=== PATIENT | male | born 1945 | race Caucasian/White ===

== ENCOUNTER 2016-05-27 09:02 | Emergency (ER) | payer MEDICARE, BC ==
[2016-05-27 09:52] LABS: Hematocrit 42.6 % (42.0-52.0); Hemoglobin 13.9 gm/dL (13.5-18.0); Mean Cell Volume 81.6 fl (78-100); Mean Corpuscular Hemoglobin 26.6 pg (27-31); Mean Corpuscular Hgb Conc 32.6 g/dl (32-36); Mean Platelet Volume 9.4 fl (6.0-9.5); Neutrophil # 4.5 K/mm3 (1.3-6.0); Neutrophil % 71.7 % (42-75.0); Platelet Count 178 K/mm3 (150-450); Red Blood Count 5.22 M/mm3 (4.7-6.0); Red Cell Distribution Width 14.8 % (11.5-14.0); White Blood Count 6.3 K/mm3 (4.0-10.5)
[2016-05-27 10:05] LABS: Albumin * 3.2 gm/dl (3.4-5.0); Anion Gap 13.5 mmol/L (6.8-13.8); BUN/Creatinine Ratio 22.2 (9.0-21.6); Bilirubin, Total 0.3 mg/dL (0.0-1.1); Ca. Corrected For Albumin 8.9 mg/dL (8.4-10.2); Calcium * 8.6 mg/dL (7.9-10.9); Carbon Dioxide 23.6 mmol/L (24-32.6); Potassium 4.1 mmol/L (3.4-4.6); Total Protein 6.4 gm/dL (6.2-8.2)
--- NOTE | 2016-05-27 11:07 | ERNOTE ---
Abdominal HPI - General Chief Complaint: Genitourinary Problem Time Seen by Provider: 05/27/16 10:45 Source: patient, family Exam Limitations: no limitations - Immun/Allergies/Home Medications Immunizatons: IMMUNIZATION HX Immunizations Up to Date Yes History of Influenza Vaccine Yes Hx Pneumococcal Vaccination Yes Allergies/Adverse Reactions: Allergies Penicillins Allergy (Mild, Verified 05/27/16 09:11) Hives Sulfa (Sulfonamide Antibiotics) [Sulfa(Sulfonamide Antibiotics)] Allergy (Mild, Verified 05/27/16 09:11) Hives Home Medications: HOME MEDICATIONS Ascorbic Acid [Vitamin C] 500 mg PO DAILY 01/21/13 [Last Taken Unknown] Multivits-Minerals/FA/Lycopene [One Daily For Men Tablet] 1 each PO DAILY [Last Taken Unknown] Oxybutynin Chloride [Oxybutynin (Ditropan)] 5 mg PO BID 01/21/13 [Last Taken Unknown] Simvastatin [Zocor] 20 mg PO HS 01/21/13 [Last Taken Unknown] Testosterone Cypionate [Depo-Testosterone] 200 mg IM Q30D 01/21/13 [Last Taken Unknown] Tamsulosin HCl [Flomax] 0.4 mg PO DAILY 11/16/14 [Last Taken Unknown] Beclomethasone Dipropionate [Qvar] 1 puff IH BID 02/07/15 [Last Taken Unknown] Docusate Sodium [Colace] 100 mg PO DAILY 02/07/15 [Last Taken Unknown] Loratadine [Claritin] 10 mg PO DAILY 02/07/15 [Last Taken Unknown] Pantoprazole Sodium [Protonix] 40 mg PO BID 02/07/15 [Last Taken Unknown] Albuterol Sulfate [Proventil Hfa] 2 puff IH Q4H PRN 07/09/15 [Last Taken Unknown ] ALPRAZolam [Xanax] 0.5 mg PO BID PRN 10/23/15 [Last Taken Unknown] Aspirin [Aspirin Enteric Coated] 325 mg PO DAILY 10/23/15 [Last Taken 10/25/15] Metoprolol Tartrate [Lopressor] 25 mg PO BID 10/23/15 [Last Taken 10/26/15 06:30 ] Archer-3 Fatty Acids/Fish Oil [Fish Oil 1,000 mg Capsule] 1 each PO DAILY [Last Taken Unknown] HYDROcodone/ACETAMINOPHEN [Nocona 5-325] 1 each PO Q4H PRN #60 tablet 10/26/15 [ Last Taken Unknown] Oxycodone HCl/Acetaminophen [Percocet 5-325 mg Tablet] 1 each PO Q4H PRN #60 tablet 10/26/15 [Last Taken Unknown] - History of Present Illness Narrative: Patient started with mild lower abdominal pain three days ago. The pain got more severe at 06:30 this morning and he is wondering whether he has another kidney stone. The pain is on both sides, comes in waves 2/10 now, up to 10/10 max. It feels better to rub his abdomen. One episode of nausea, no vomiting, no diarrhea. He had not urinated since yesterday am, bladder scan only showed 250ml and he was able to urinate just prior to exam. His abdomen feels more bloated than usual Timing: intermittent Quality: moderate Modifying Factors - (Improves): Present: other - rubbing it Modifying Factors - (Worsens): Absent: breathing, coughing Associated Symptoms: Present: nausea. Absent: headache, back pain, chest pain, neck pain, fever/chills, heartburn, vomiting Review of Systems - Review of Systems Constitutional: Absent: recent illness, fever Respiratory: Absent: shortness of breath, cough Cardiology: Absent: chest pain Gastrointestinal/Abdominal: Present: See HPI, nausea Genitourinary: Present: See HPI. Absent: frequency, pain, dysuria Neurological: Absent: headache, weakness, numbness - Patient's Past Medical History Patient History - Medical: Kidney stone, Migraines, Obesity Patient History - Cardiac/Respiratory: Atrial Fibrillation - intermittent, COPD Patient History - Cancer: No Hx of Cancer Patient History - Surgical Procedures: Appendectomy - as a child, Colonoscopy, T & A, Other - Family History Father Family History - Medical: , No pertinent hx Family History - Cardiac/Respiratory: Other Mother Family History - Medical: , Alzheimer's Disease Family History - Cardiac/Respiratory: CVA/Stroke - Social History Living Situations: spouse Does anyone smoke in the home?: No Smoking Status: Former smoker - quit 40+ years ago Alcohol Use: occasionally Drug Use: none Physical Exam - Physical Exam General Appearance: Present: wd/wn, alert, no apparent distress Respiratory: Present: no respiratory distress, normal breath sounds, no accessory muscle use, lungs clear Cardiovascular/Chest: Present: regular rate, rhythm, no murmur Gastrointestinal/Abdominal: Present: normal bowel sounds, nondistended, soft, tenderness - mild periumbilical. Absent: guarding, rebound Neurological Exam: Present: alert, oriented, normal mood/affect Skin Exam: Present: normal color, warm/dry ED Progress - Results and Orders Patient's Lab Results:: I have reviewed the patient's lab results. - Vital Signs Patient's Vital Signs:: I have reviewed the patient's vital signs. Vital Signs: Vital Signs 05/27/16 09:06 Temperature 36.0 C L Pulse Rate 63 Respiratory 20 Rate Blood Pressure 159/77 O2 Sat by Pulse 99 Oximetry - X-Ray X-Ray #1 X-Ray: abdomen - stool, no other acute findings Interpretation: Reviewed by me - Progress/Reassessment Chief Complaint: Genitourinary Problem Progress Note-Subjective: 05/27/16 13:00 feeling much better, discussed results and treatment of constipation Departure - Departure Clinical Impression: Abdominal pain Qualifiers: Abdominal location: lower abdomen, unspecified Qualified Code(s): R10.30 - Lower abdominal pain, unspecified Constipation Qualifiers: Constipation type: unspecified constipation type Qualified Code(s): K59.00 - Constipation, unspecified Disposition: Home self-care Condition: Good Instructions: Constipation, Adult, [id number] Additional Instructions: try a laxative like dulcolax and magnesium citrate to relieve the constipation if the pain does not resolve with that or you have additional symptoms follow up with your doctor or return to the ER Referrals: William Dennis MD [Primary Care Provider] -
[2016-05-27] MEDS ORDERED: ONDANSETRON HCL/PF 2 MG/ML VIAL IV ONE (11:12)
[2016-05-27] MEDS ORDERED: KETOROLAC TROMETHAMINE 30 MG/ML VIAL IV ONE (11:12)
[2016-05-27 11:19] LABS: Urine Appearance Clear; Urine Bilirubin Negative (NEGATIVE); Urine Blood Negative /ul (NEGATIVE); Urine Color Yellow; Urine Ketone Negative (NEGATIVE); Urine Nitrite Negative (NEGATIVE); Urine Protein Negative (NEGATIVE); Urine Urobilinogen Normal (NORMAL)
[2016-05-27 11:20] LABS: Urine Bacteria None Seen; Urine RBC None Seen /hpf (0-5); Urine WBC None Seen /hpf (0-5)
[2016-05-27] MEDS ORDERED: ONDANSETRON HCL/PF 2 MG/ML VIAL ONE (11:20)
[2016-05-27] MEDS ORDERED: KETOROLAC TROMETHAMINE 30 MG/ML VIAL ONE (11:20)
[2016-05-27 13:10] VITALS: BP 140/77
== END 2016-05-27 13:09 | disposition home or self-care (01) ==
LOC: ER 09:02
PROC: BT40ZZZ Ultrasonography of Bladder (ICD-10-PCS; principal; 2016-05-27)
DX: K59.00 Constipation, unspecified (principal); R10.30 Lower abdominal pain, unspecified; Z87.442 Personal history of urinary calculi; Z87.891 Personal history of nicotine dependence

== ENCOUNTER 2016-07-25 08:33 | Observation (INO) | payer MEDICARE, BC ==
[2016-07-25] MEDS ORDERED: NITROGLYCERIN 0.4 MG/TAB BTL SL ONE (08:47)
[2016-07-25] MEDS ORDERED: NITROGLYCERIN 0.4 MG/TAB BTL SL PRN (08:48)
[2016-07-25] MEDS ORDERED: ONDANSETRON HCL/PF 2 MG/ML VIAL ONE ×2 (08:49→10:06)
[2016-07-25] MEDS ORDERED: ONDANSETRON HCL/PF 2 MG/ML VIAL IV ONE ×2 (08:49→09:57)
--- OUTSIDE RECORDS SUMMARY | 2016-07-25 08:53 | XMS REPORT | Continuity of Care Document ---
:1945 Author Organization [facility] ([facility]) Address [address] [place] [address] Phone [phone] Care Team Providers Name Role Phone William Dennis Primary Care Provider [phone] Source Comments This disclosure is being made pursuant to the Care Everywhere program, applicable federal and state laws, and may not contain all informaitonavailable regarding this patient.[facility] ([facility]) Active Allergies and Adverse Reactions Allergen Noted Date Severity Reactions Comments Penicillins Urticaria (Hives) Sulfadoxine Urticaria (Hives) Current Medications Prescription Sig. Disp. Refills Start End Date Status Date LORATADINE PO Take 10 mg by mouth Active daily . MULTIVITAMINS Take by mouth daily Active (MULTIVITAMIN PO) . ASPIRIN/ACETAMINO Take 2 tablets by Active PHEN/CAFFEINE mouth as needed . (EXCEDRIN MIGRAINE PO) PANTOPRAZOLE 40 Take 40 mg by mouth Active mg EC tablet daily . 4 docusate 100 mg Take 100 mg by Active capsule mouth daily . ALPRAZolam 0.5 mg Take 1 Tab (0.5 mg 60 Tab 5 Active tablet total) by mouth 2 5 times daily as needed QVAR 80 Use by inhalation 2 3 Active mcg/Actuation times daily . 5 inhaler SIMVASTATIN 20 mg Take 20 mg by mouth 3 Active tablet every evening . 5 omega-3 fatty Take 1 g by mouth Active acids 1 gram daily. capsule ALBUTEROL SULFATE Use by inhalation Active (PROVENTIL INH) as needed. aspirin 325 mg Take 325 mg by Active tablet mouth daily. tamsulosin 0.4 mg Take 1 capsule (0.4 30 capsule 11 Active capsule mg total) by mouth 6 daily. testosterone Inject 1 mL (200 mg 1 mL 5 Active cypionate 200 total) 6 mg/mL injection intramuscularly every 4 weeks. metoPROLol Take 1 tablet (25 90 tablet 3 Active tartrate 25 mg mg total) by mouth 6 tablet 2 times daily. oxybutynin 5 mg Take 1 tablet (5 mg 180 tablet 4 Active tablet total) by mouth 2 6 times daily. ascorbic acid Take 1,000 mg by Active (vitamin C) mouth daily. (VITAMIN C) 1,000 mg tablet acetaminophen 500 Take 500 mg by Active mg tablet mouth every 6 hours as needed. albuterol 2.5 Use 3 mL by Active mg/3 mL inhalation every 4 inhalation hours as needed. solution tiotropium Use 1 capsule by 30 capsule 11 Active (SPIRIVA) 18 mcg inhalation daily. 7 inhalation capsule levofloxacin 750 0 07/12/19 Discontinued mg tablet 6 17 Active Problems Problem Noted Date COPD (chronic obstructive pulmonary disease) 07/12/2016 Gastroesophageal reflux disease with esophagitis 07/12/2016 COPD, frequent exacerbations 07/12/2016 Nephrolithiasis 05/26/2014 Action tremor 05/11/2014 Male hypogonadism 09/16/2011 Atrial fibrillation Hyperlipidemia Sleep apnea Obesity Most Recent Encounters Date Type Specialty Providers Description 07/12/2016 Telephone [facility] Radha Lino, Chief Comp: Medication QUANTITATIVE ASSOCIATE Problem 07/11/2016 Office Visit Med Pulmonary Default, Other Dx: Gastroesophageal Billg - Defo reflux disease, Comellas, esophagitis presence Marlo Richmond MD not specified (Primary Clinic, Dx) Obstructive Pulmonary Disease 07/11/2016 Hospital Respiratory Therapy Default, Other Dx: Other emphysema Encounter Mark Lantigua MD 07/02/2016 Orders/Notes Med Pulmonary Radha Lino, Dx: Other emphysema QUANTITATIVE ASSOCIATE (Primary Dx) 05/27/2016 Telephone Urology Jose Juan Cardona MD Chief Comp: Patient Concern 05/10/2016 Refill Cardiac Erica Munroe MD Dx: Paroxysmal atrial Rehabilitation fibrillation (Primary Dx) 05/10/2016 Refill Cardiac Erica Munroe MD Dx: Paroxysmal atrial Rehabilitation fibrillation (Primary Dx) Social History Tobacco Use Types Packs/Day Years Used Date Former Smoker Cigarettes 0.5 20 Quit: 05/05/1976 Smokeless Tobacco: Never Used Tobacco Cessation:Counseling Given: Yes Comments: Alcohol Use Drinks/Week oz/Week Comments Yes 1 Glasses of wine 1.0 1 Cans of beer Last Filed Vital Signs Vital Sign Reading Time Taken Blood Pressure 122/79 07/11/2016 3:16 PM COMMUNITY HEALTH NURSE SUPERVISOR Pulse 87 07/11/2016 3:16 PM COMMUNITY HEALTH NURSE SUPERVISOR Temperature 37.2 C (99 F) 07/11/2016 3:16 PM COMMUNITY HEALTH NURSE SUPERVISOR Respiratory Rate 14 07/11/2016 3:16 PM COMMUNITY HEALTH NURSE SUPERVISOR Height 1.65 m (5' 4.96") 07/11/2016 3:16 PM COMMUNITY HEALTH NURSE SUPERVISOR Weight 111.6 kg (246 lb 0.5 oz) 07/11/2016 3:16 PM COMMUNITY HEALTH NURSE SUPERVISOR Body Mass Index 40.99 07/11/2016 3:16 PM COMMUNITY HEALTH NURSE SUPERVISOR Oxygen Saturation 97% 07/11/2016 3:16 PM COMMUNITY HEALTH NURSE SUPERVISOR Plan of Care Date Type Specialty Providers Description 08/26/2016 Appointment Med Pulmonary Default, Other Billg - Defo [address] [place] [address] [phone] (Fax) Subj: Appointment Radha iLno ARNP [address] [place] [address] [phone] (Fax) Scheduled 08/26/2016 Appointment Radiology Subj: Appointment Scheduled 08/26/2016 Appointment Urology Jose Juan Cardona MD Subj: Appointment [address] [facility] [place] [address] [phone] (Fax) Health Maintenance Due Date Last Done Comments HCV Screening 1945 Hepatitis B Vaccine (1 of 3 1945 - Primary Series) Tdap Vaccine 1957 Lipid Disorder Screening 1964 Td Vaccine 1963 Colonoscopy 06/05/1996 Zoster Vaccine 2006 Pneumococcal Vaccine (1 of 2 2011 - PCV13) Influenza Vaccine: Seasonal 12/04/2015 (#1) Prostate Cancer Screening 02/25/2018 02/26/2016, Additional history exists 07/24/2015, 01/16/2015 Results from Last 3 Months PULMONARY FUNCTION TEST (PFT) (07/11/2016 2:12 PM) Component Value Range FVC Predicted 3.61 0.05-9.99 Liters FVC 2.63 0 - 12 Liters FVC %Predicted 73 0-300 % FVC Post 2.43 0 - 12 Liters FVC % Predicted Post 67 0-300 % FVC % Chng -8 0-300 % FEV1 Predicted 2.64 0.05-9.99 Liters FEV1 1.65 0 - 12 Liters FEV1% Predicted 63 0-300 % FEV1 Post BD 1.73 0 - 12 Liters FEV1 % Pred Post 66 0-300 % FEV1 % Chng 5 0-300 % FEV1/FVC Predicted 74 1-99 % FEV1/FVC 63 0 - 12 % FEV1/FVC Post 71 0 - 12 % FEF 25-75% Predicted 2.02 0-12 L/sec FEF 25-75% 0.79 0-12 L/sec FEF 25-75% %Pre Predicted 39 0-300 % FEF 25-75% Post 1.15 0-12 L/sec FEF 25-75% %Post Predicted 57 0-300 % FEF 25-75% Chng 46 0-300 % PEF Predicted 7.26 0-18 L/sec PEF Pre BD 4.46 0-18 L/sec PEF % Pre Predicted 61 0-300 % PEF Post BD 4.54 0-18 L/sec PEF %Post Predicted 63 0-300 % PEF %CHNG 2 0-300 % PIF PRE BD 3.22 0-18 L/sec PIF POST BD 2.12 0-18 L/sec PIF %CHNG -34 0-300 % FEV6 PRE 2.44 0 - 12 Liters MVV Predicted 105 0-300 L/min VC PREDICTED 3.61 0.05-9.99 Liters TLC Predicted 5.31 0.05-11.99 Liters RV Predicted 2.20 0.05-9.99 Liters RV/TLC Predicted 41 0-300 % FRC PL Predicted 2.41 0.05-9.99 Liters DLCO Predicted 24.1 0.05-99.99 mL/mmHg/min DLCO 19.4 mL/mmHg/min DLCO % Predicted 81 0-300 % DLCO ADJ Predicted 24.1 1-2 mL/mmHg/min DLCO Adj 19.4 1-2 mL/mmHg/min DLCO Adj % Predicted 81 0-300 % VA PRE BD 3.46 Liters PI MAX Predicted 105 cmH2O
[2016-07-25] MEDS ORDERED: NORMAL SALINE 1,000 ML IV ONE (08:58)
[2016-07-25 09:03] LABS: Hematocrit 41.6 % (42.0-52.0); Hemoglobin 13.5 gm/dL (13.5-18.0); Mean Cell Volume 80.3 fl (78-100); Mean Corpuscular Hemoglobin 26.1 pg (27-31); Mean Corpuscular Hgb Conc 32.5 g/dl (32-36); Mean Platelet Volume 9.4 fl (6.0-9.5); Neutrophil # 9.2 K/mm3 (1.3-6.0); Neutrophil % 83.4 % (42-75.0); Platelet Count 226 K/mm3 (150-450); Red Blood Count 5.18 M/mm3 (4.7-6.0); Red Cell Distribution Width 14.6 % (11.5-14.0)
--- NOTE | 2016-07-25 09:03 | ERNOTE ---
Chest Pain/Cardiac HPI Chief Complaint: Chest Pain Time Seen by Provider: 07/25/16 08:35 Source: patient, family Exam Limitations: no limitations Immunizations: IMMUNIZATION HX Immunizations Up to Date Yes History of Influenza Vaccine Yes Hx Pneumococcal Vaccination Yes Allergies/Adverse Reactions: Allergies Penicillins Allergy (Mild, Verified 05/27/16 09:11) Hives Sulfa (Sulfonamide Antibiotics) [Sulfa(Sulfonamide Antibiotics)] Allergy (Mild, Verified 05/27/16 09:11) Hives Home Medications: HOME MEDICATIONS Oxybutynin Chloride [Oxybutynin (Ditropan)] 5 mg PO BID 01/21/13 [Last Taken Unknown] Simvastatin [Zocor] 20 mg PO HS 01/21/13 [Last Taken Unknown] Testosterone Cypionate [Depo-Testosterone] 200 mg IM Q30D 01/21/13 [Last Taken Unknown] Tamsulosin HCl [Flomax] 0.4 mg PO DAILY 11/16/14 [Last Taken Unknown] Docusate Sodium [Colace] 100 mg PO BID 02/07/15 [Last Taken Unknown] Loratadine [Claritin] 10 mg PO DAILY 02/07/15 [Last Taken Unknown] Pantoprazole Sodium [Protonix] 40 mg PO BID 02/07/15 [Last Taken Unknown] Albuterol Sulfate [Proventil Hfa] 2 puff IH Q4H PRN 07/09/15 [Last Taken Unknown ] ALPRAZolam [Xanax] 0.5 mg PO BID PRN 10/23/15 [Last Taken Unknown] Aspirin [Aspirin Enteric Coated] 325 mg PO DAILY 10/23/15 [Last Taken 10/25/15] Metoprolol Tartrate [Lopressor] 25 mg PO BID 10/23/15 [Last Taken 10/26/15 06:30 ] Acetaminophen/Diphenhydramine [Tylenol Pm Ex-Strength Caplet] 2 each PO Q6H PRN 07/25/16 [Last Taken Unknown] Budesonide/Formoterol Fumarate [Symbicort 80-4.5 Mcg Inhaler] 1 puff IH DAILY [Last Taken Unknown] Cholecalciferol (Vitamin D3) [Vitamin D3] 2,000 unit PO DAILY 07/25/16 [Last Taken Unknown] Escitalopram Oxalate [Lexapro] 10 mg PO DAILY 07/25/16 [Last Taken Unknown] Mometasone Furoate [Asmanex Hfa] 13 gm IH DAILY 07/25/16 [Last Taken Unknown] Narrative: Patient woke up to go to the bathroom and noticed pressure in his chest as well as nausea and shortness of breath, symptoms have been getting worse since. He has not history of CAD but had one episode of a-fib, he has mild palpitations now (they were worse with hi prior episode) He had recent medication adjustments with his COPD, had a reaction to a new inhaled steroid and now is on spiriva and another steroid. Yesterday he was also started on lexapro and took first dose just before midnight, about a month ago he was treated for bronchitis with levaquin and steroids. Date (Duration): 07/25/16 Time (Timing): 03:00 Timing: constant, getting worse Severity/Quality: moderate, pressure Location: central Chest Pain Radiation: no radiation Activities at Onset: sleep Nitro Today/Relief: no nitro taken today Associated Symptoms: Present: shortness of breath, nausea. Absent: vomiting Prior Chest Pain/Cardiac Workup: Denies: prior chest pain, heart attack Prior Treatment: Reports: recently seen. Denies: currently on antibiotics Review of Systems - Review of Systems Constitutional: Present: recent illness. Absent: chills ENT: Absent: sore throat Respiratory: Present: See HPI, shortness of breath Cardiology: Present: See HPI, chest pain Gastrointestinal/Abdominal: Present: nausea. Absent: vomiting, diarrhea, abdominal pain Skin: Present: no symptoms reported Neurological: Absent: headache, dizziness/light-headedness, weakness, numbness - Patient's Past Medical History Patient History - Medical: Depression, Kidney stone, Migraines, Obesity Patient History - Cardiac/Respiratory: Atrial Fibrillation, Hypertension, Hyperlipidemia, CPAP/BiPAP Home Use Patient History - Cancer: No Hx of Cancer Patient History - Surgical Procedures: Appendectomy, Colonoscopy, T & A, Other Patient History - Other: None - Family History Father Family History - Medical: , No pertinent hx Family History - Cardiac/Respiratory: Other Mother Family History - Medical: , Alzheimer's Disease Family History - Cardiac/Respiratory: CVA/Stroke - Social History Living Situations: spouse Abuse History: No History of abuse Psych History: Hx of Depression Does anyone smoke in the home?: No Smoking Status: Former smoker Alcohol Use: occasionally Drug Use: none - Immunizations Immunizations Up to Date: Yes Hx Pneumococcal Vaccination: Yes History of Influenza Vaccine: Yes Physical Exam - Physical Exam General Appearance: Present: wd/wn, alert, mild distress, anxious, obese Respiratory: Present: no respiratory distress, normal breath sounds, no accessory muscle use, lungs clear Cardiovascular/Chest: Present: regular rate, rhythm, no murmur Gastrointestinal/Abdominal: Present: normal bowel sounds, nontender, nondistended, soft Extremity Exam: Present: no edema Neurological Exam: Present: alert, oriented, normal mood/affect Skin Exam: Present: normal color, warm/dry ED Progress - Results and Orders Patient's Lab Results:: I have reviewed the patient's lab results. - Vital Signs Patient's Vital Signs:: I have reviewed the patient's vital signs. Vital Signs: Vital Signs 07/25/16 08:42 Temperature 36.6 C Pulse Rate 103 H Respiratory 21 H Rate Blood Pressure 151/90 O2 Sat by Pulse 98 Oximetry - EKG EKG: atrial fibrillation, other - non specific ST changes, PVC EKG read: Interp. by me - X-Ray X-Ray #1 X-Ray: chest - no acute Interpretation: Reviewed by me - Progress/Reassessment Chief Complaint: Chest Pain Progress Note-Subjective: 07/25/16 09:00 pain 1-2 after first nitro 07/25/16 09:15 chest pain and nausea resolved, BP decreased after nitro, patient is receiving fluids 07/25/16 09:45 no chest pain, slight nausea, discussed results with patient an family 07/25/16 09:[address] Dennis Departure - Departure Clinical Impression: Chest pain Qualifiers: Chest pain type: precordial pain Qualified Code(s): R07.2 - Precordial pain Atrial fibrillation Qualifiers: Atrial fibrillation type: paroxysmal Qualified Code(s): I48.0 - Paroxysmal atrial fibrillation Disposition: [facility] Condition: Good
[2016-07-25 09:14] LABS: Prothrombin Time (Patient) 10.7 Seconds (9.4-11.4)
[2016-07-25 09:17] LABS: INR 1.03 INR (0.90-1.10); Partial Thrombolplastin Time 25.2 Seconds (24-32)
[2016-07-25 09:22] LABS: ALT 19 U/L (19-67); AST 12 U/L (0-48); Albumin * 3.6 gm/dl (3.4-5.0); Alkaline Phosphatase * 92 U/L (50-170); Anion Gap 15.1 mmol/L (6.8-13.8); BUN/Creatinine Ratio 16.5 (9.0-21.6); Bilirubin, Total 0.7 mg/dL (0.0-1.1); Blood Urea Nitrogen 16 mg/dL (6-23); Ca. Corrected For Albumin 9.2 mg/dL (8.4-10.2); Calcium * 9.2 mg/dL (7.9-10.9); Carbon Dioxide 22.8 mmol/L (24-32.6); Chloride 105 mmol/L (97-106); Glucose * 121 mg/dL (70-110); Potassium 3.9 mmol/L (3.4-4.6); Sodium 139 mmol/L (132-142); Total Protein 6.7 gm/dL (6.2-8.2)
[2016-07-25 09:23] LABS: Troponin I Less than 0.017 ng/ml (0.00-0.10)
[2016-07-25] MEDS ORDERED: ASPIRIN 81 MG TAB.CHEW PO ONE (09:52)
[2016-07-25] MEDS ORDERED: ASPIRIN 81 MG TAB.CHEW ONE (09:53)
--- OUTSIDE RECORDS SUMMARY | 2016-07-25 09:58 | XMS REPORT | Continuity of Care Document ---
:1945 Author Organization [facility] ([facility]) Address [address] [place] [address] Phone [phone] Care Team Providers Name Role Phone William Dennis Primary Care Provider [phone] Source Comments This disclosure is being made pursuant to the Care Everywhere program, applicable federal and state laws, and may not contain all informaitonavailable regarding this patient.[facility] ([facility]) Active Allergies and Adverse Reactions Allergen Noted [...] [facility] Radha Lino, Chief Comp: Medication MAINTENANCE SUPERVISOR 2ND SHIFT Problem 07/11/2016 Office Visit Med Pulmonary Default, Other Dx: Gastroesophageal Billg - Defo reflux disease, Comellas, esophagitis presence Marlo Richmond MD not specified (Primary Clinic, Dx) Obstructive Pulmonary Disease 07/11/2016 Hospital Respiratory Therapy Default, Other Dx: Other emphysema Encounter Mark Lantigua MD 07/02/2016 Orders/Notes Med Pulmonary Radha Lino, Dx: Other emphysema MAINTENANCE SUPERVISOR 2ND SHIFT (Primary Dx) 05/27/2016 Telephone Urology Jose Juan [...] Taken Blood Pressure 122/79 07/11/2016 3:16 PM CERTIFIED ENDOSCOPY TECHNICIAN Pulse 87 07/11/2016 3:16 PM CERTIFIED ENDOSCOPY TECHNICIAN Temperature 37.2 C (99 F) 07/11/2016 3:16 PM CERTIFIED ENDOSCOPY TECHNICIAN Respiratory Rate 14 07/11/2016 3:16 PM CERTIFIED ENDOSCOPY TECHNICIAN Height 1.65 m (5' 4.96") 07/11/2016 3:16 PM CERTIFIED ENDOSCOPY TECHNICIAN Weight 111.6 kg (246 lb 0.5 oz) 07/11/2016 3:16 PM CERTIFIED ENDOSCOPY TECHNICIAN Body Mass Index 40.99 07/11/2016 3:16 PM CERTIFIED ENDOSCOPY TECHNICIAN Oxygen Saturation 97% 07/11/2016 3:16 PM CERTIFIED ENDOSCOPY TECHNICIAN Plan of Care Date Type Specialty Providers Description 08/26/2016 Appointment Med Pulmonary Default, Other Billg - Defo [address] [place] [address] [phone] (Fax) Subj: Appointment Radha Lino ARNP [address] [place] [address] [phone] (Fax) Scheduled 08/26/2016 Appointment Radiology Subj: Appointment Scheduled 08/26/2016 Appointment Urology Jose Juan Cardona MD Subj: Appointment 200 [facility] [place] [address] [phone] (Fax) Health Maintenance Due Date Last Done [...]
[2016-07-25] MEDS: ALPRAZolam 0.5 MG TABLET PO PRN ×2 (12:29→19:20)
[2016-07-25] MEDS ORDERED: ALPRAZolam 0.5 MG TABLET PO PRN (12:57)
--- NOTE | 2016-07-25 12:57 | HP ---
Chief Complaint - Chief Complaint Date of Service: 07/25/16 Time of Service: 12:42 Chief Complaint: chest pain History of Present Illness: Charlie Zuniga, is a 71-year-old white male, with previous medical history of paroxysmal atrial fibrillation, COPD, GERD, obstructive sleep apnea, migraine, who woke up around 2:30 in the morning with palpitations. He said his meter was registering around 110. This was associated with some anxiety. At around 7 :30 in the morning they called the physician molten iron pourer and he was told that if he is having chest pain to go to the emergency room, otherwise, to wait until later and call the clinic. At 8:00 a.m. started having chest pain described as a belt tied around his chest, 10, nonradiating, not associated with nausea or vomiting, no diaphoresis. He was then brought to the emergency room where he was given nitroglycerin in and his chest pain improved. His EKG showed atrial fibrillation with rate control of [address] depression. He was then admitted under our chest pain protocol. - Patient's Past Medical History Patient History - Medical: Depression, Kidney stone, Migraines, Obesity Patient History - Cardiac/Respiratory: Atrial Fibrillation, Hypertension, Hyperlipidemia, CPAP/BiPAP Home Use Patient History - Cancer: No Hx of Cancer Patient History - Surgical Procedures: Appendectomy, Colonoscopy, T & A, Other Patient History - Other: None - Family History Father Family History - Medical: , No pertinent hx Family History - Cardiac/Respiratory: Other Family History - Cancer: No pertinent family hx Mother Family History - Medical: , Alzheimer's Disease Family History - Cardiac/Respiratory: CVA/Stroke Family History - Cancer: No pertinent family hx - Social History Living Situations: spouse Abuse History: No History of abuse Psych History: Hx of Depression Does anyone smoke in the home?: No Smoking Status: Former smoker Have you smoked in the past 12 months: No Do you dip or chew tobacco: No Smoking Stop Date: 06/24/74 Patient requests Smoking Cessation Consult: No Initiate information on Smoking Cessation: No Alcohol Use: occasionally Drug Use: none - Immunizations Immunizations Up to Date: Yes Hx Pneumococcal Vaccination: Yes History of Influenza Vaccine: Yes Review Of Systems (GEN) - Review of Systems Generalized/Overall Review: Absent: Weakness, Chills, Fever EENTM: Present: No Symptoms Reported Respiratory: Present: Shortness of Breath. Absent: Cough, Wheezing Cardiac: Present: Chest Pain, Palpitations. Absent: Edema Abdominal: Absent: Nausea, Vomiting Genitourinary: Absent: Urgency, Frequency Immunizations: IMMUNIZATION HX Immunizations Up to Date Yes History of Influenza Vaccine Yes Hx Pneumococcal Vaccination Yes Allergies/Adverse Reactions: Allergies Allergy/AdvReac Type Severity Reaction Status Date / Time Penicillins Allergy Mild Hives Verified 07/25/16 11:24 Sulfa (Sulfonamide Allergy Mild Hives Verified 07/25/16 11:24 Antibiotics) [Sulfa(Sulfonamide Antibiotics)] budesonide [From Symbicort] AdvReac Severe SOB Verified 07/25/16 11:26 formoterol [From Symbicort] AdvReac Severe SOB Verified 07/25/16 11:26 Home Medications: HOME MEDICATIONS Oxybutynin Chloride [Oxybutynin (Ditropan)] 5 mg PO BID 01/21/13 [Last Taken Unknown] Simvastatin [Zocor] 20 mg PO HS 01/21/13 [Last Taken Unknown] Testosterone Cypionate [Depo-Testosterone] 200 mg IM Q30D 01/21/13 [Last Taken Unknown] Tamsulosin HCl [Flomax] 0.4 mg PO DAILY 11/16/14 [Last Taken Unknown] Docusate Sodium [Colace] 100 mg PO BID 02/07/15 [Last Taken Unknown] Loratadine [Claritin] 10 mg PO DAILY 02/07/15 [Last Taken Unknown] Pantoprazole Sodium [Protonix] 40 mg PO BID 02/07/15 [Last Taken Unknown] Albuterol Sulfate [Proventil Hfa] 2 puff IH Q4H PRN 07/09/15 [Last Taken Unknown ] ALPRAZolam [Xanax] 0.5 mg PO TID PRN 10/23/15 [Last Taken Unknown] Aspirin [Aspirin Enteric Coated] 325 mg PO DAILY 10/23/15 [Last Taken 10/25/15] Metoprolol Tartrate [Lopressor] 25 mg PO BID 10/23/15 [Last Taken 10/26/15 06:30 ] Acetaminophen [Tylenol] 1,000 mg PO QID PRN 07/25/16 [Last Taken Unknown] Cholecalciferol (Vitamin D3) [Vitamin D3] 2,000 unit PO DAILY 07/25/16 [Last Taken Unknown] Mometasone Furoate [Asmanex Hfa] 1 puff IH DAILY 07/25/16 [Last Taken Unknown] Tiotropium [place] [Spiriva] 18 mcg IH DAILY 07/25/16 [Last Taken Unknown] Exam - Exam Vital Signs: Vital Signs - Last Taken Temp 36.8 C 07/25/16 10:08 Pulse 100 07/25/16 10:40 Resp 16 07/25/16 10:08 BP 120/85 07/25/16 10:08 Pulse Ox 97 07/25/16 10:08 Constitutional: Present: Alert, Oriented x3, Cooperative ENT Exam: Present: hearing grossly normal Eye Exam: bilateral eye: normal inspection, PERRL, EOMI Neck: Present: supple Back Exam: Present: no CVA tenderness Breasts: Present: Exam deferred Respiratory: Present: decreased breath sounds, rhonchi, No wheezing Cardiovascular/Chest: Present: no JVD, no murmur, irregularly irregular Abdomen: Present: Normal bowel sounds, soft, nontender, nondistended Extremity: Present: no pedal edema, no calf tenderness Diagnostic Studies: Laboratory Results WBC 11.0 K/mm3 (4.0-10.5) H 07/25/16 08:53 RBC 5.18 M/mm3 (4.7-6.0) 07/25/16 08:53 Hgb 13.5 gm/dL (13.5-18.0) 07/25/16 08:53 Hct 41.6 % (42.0-52.0) L 07/25/16 08:53 MCV 80.3 fl (78-100) 07/25/16 08:53 MCH 26.1 pg (27-31) L 07/25/16 08:53 MCHC 32.5 g/dl (32-36) 07/25/16 08:53 RDW 14.6 % (11.5-14.0) H 07/25/16 08:53 Plt Count 226 K/mm3 (150-450) 07/25/16 08:53 MPV 9.4 fl (6.0-9.5) 07/25/16 08:53 Immature Gran % (Auto) 0.50 % (0.001-0.429) H 07/25/16 08:53 Immature Gran # (Auto) 0.05 K/mm3 (0.000-0.0310) H 07/25/16 08:53 Neutrophils % 83.4 % (42-75.0) H 07/25/16 08:53 Lymphocytes % 9.6 % (20-51) L 07/25/16 08:53 Monocytes % 5.8 % (0.0-9) 07/25/16 08:53 Eosinophils % 0.2 % (0.0-3.0) 07/25/16 08:53 Basophils % 0.5 % (0.0-1.0) 07/25/16 08:53 Nucleated RBC % 0.0 k/mm3 (0-1) 07/25/16 08:53 Neutrophils # 9.2 K/mm3 (1.3-6.0) H 07/25/16 08:53 Lymphocytes # 1.1 k/mm3 (1.5-3.5) L 07/25/16 08:53 Monocytes # 0.6 k/mm3 (0.0-1.0) 07/25/16 08:53 Eosinophils # 0.0 k/mm3 (0.0-0.7) 07/25/16 08:53 Absolute Basophils 0.1 k/mm3 (0.0-0.1) 07/25/16 08:53 PT 10.7 Seconds (9.4-11.4) 07/25/16 08:53 INR (Anticoag Therapy) 1.03 INR (0.90-1.10) 07/25/16 08:53 PTT ([place]) 25.2 Seconds (24-32) 07/25/16 08:53 Sodium 139 mmol/L (132-142) 07/25/16 08:53 Plasma Sodium 139 mmol/L (130-142) 07/25/16 08:53 Potassium 3.9 mmol/L (3.4-4.6) 07/25/16 08:53 Chloride 105 mmol/L (97-106) 07/25/16 08:53 Carbon Dioxide 22.8 mmol/L (24-32.6) L 07/25/16 08:53 Anion Gap 15.1 mmol/L (6.8-13.8) H 07/25/16 08:53 BUN 16 mg/dL (6-23) 07/25/16 08:53 Creatinine 0.97 mg/dL (0.4-1.4) 07/25/16 08:53 Est GFR (Non-Af Amer) 81 mL/min (60-130) 07/25/16 08:53 BUN/Creatinine Ratio 16.5 (9.0-21.6) 07/25/16 08:53 Random Glucose 121 mg/dL (70-110) H 07/25/16 08:53 Calcium 9.2 mg/dL (7.9-10.9) 07/25/16 08:53 Calcium Adj for Albumin 9.2 mg/dL (8.4-10.2) 07/25/16 08:53 Total Bilirubin 0.7 mg/dL (0.0-1.1) 07/25/16 08:53 AST 12 U/L (0-48) 07/25/16 08:53 ALT 19 U/L (19-67) 07/25/16 08:53 Alkaline Phosphatase 92 U/L (50-170) 07/25/16 08:53 Troponin I Less than 0.017 ng/ml (0.00-0.10) 07/25/16 08:53 Total Protein 6.7 gm/dL (6.2-8.2) 07/25/16 08:53 Albumin 3.6 gm/dl (3.4-5.0) 07/25/16 08:53 Assessment/Plan - Assessment/Plan (1) Chest pain Assessment: r/o ACS. continue with chest pain protocol. Problem: Acute Qualifiers: Chest pain type: precordial pain Qualified Code(s): R07.2 - Precordial pain (2) COPD (chronic obstructive pulmonary disease) Assessment: continue with home inhalers and nebulizers Problem: Acute Qualifiers: COPD type: unspecified COPD Qualified Code(s): J44.9 - Chronic obstructive pulmonary disease, unspecified (3) H/O hyperlipidemia Problem: Acute (4) Anxiety and depression Assessment: took 1st dose of lexapro last night Problem: Acute (5) Atrial fibrillation Assessment: paroxysmal. CHADS 0-1. will continue with ASA. Problem: Acute Qualifiers: Atrial fibrillation type: paroxysmal Qualified Code(s): I48.0 - Paroxysmal atrial fibrillation (6) Migraine Problem: Acute
[2016-07-25] MEDS ORDERED: TIOTROPIUM BROMIDE 5 CAP INHALER IH SCH (13:00)
[2016-07-25] MEDS ORDERED: METOPROLOL TARTRATE 25 MG TABLET PO SCH (13:15)
[2016-07-25] MEDS ORDERED: ALBUTEROL SULFATE 2.5 MG/3 ML VIAL.NEB IH PRN (13:21)
[2016-07-25] MEDS: ASPIRIN 325 MG TABLET.DR PO SCH (13:44)
[2016-07-25] MEDS: ACETAMINOPHEN 500 MG TABLET PO PRN ×2 (14:07→21:53)
[2016-07-25] MEDS ORDERED: METOPROLOL TARTRATE 25 MG TABLET PO ONE (14:15)
[2016-07-25] MEDS ORDERED: TAMSULOSIN HCL 0.4 MG CAP.SR.24H PO SCH (18:00)
[2016-07-25] MEDS: PANTOPRAZOLE SODIUM 40 MG TABLET.EC PO SCH (20:18)
[2016-07-25] MEDS: DOCUSATE SODIUM 100 MG CAPSULE PO SCH (20:18)
[2016-07-25] MEDS: METOPROLOL TARTRATE 25 MG TABLET PO SCH (20:18)
[2016-07-25] MEDS: OXYBUTYNIN CHLORIDE 5 MG TABLET PO SCH (20:19)
[2016-07-25] MEDS ORDERED: SIMVASTATIN 20 MG TABLET PO SCH (21:00)
[2016-07-26] MEDS: ACETAMINOPHEN 500 MG TABLET PO PRN (04:21)
--- NOTE | 2016-07-26 07:23 | DS ---
(1) Chest pain Diagnosis(s): AMI ruled out. Problem: Acute Qualifiers: Chest pain type: precordial pain Qualified Code(s): R07.2 - Precordial pain (2) Atrial fibrillation Diagnosis(s): Rate controlled. on ASA. CHADS 1. Problem: Acute Qualifiers: Atrial fibrillation type: persistent Qualified Code(s): I48.1 - Persistent atrial fibrillation (3) Nonsustained ventricular tachycardia Diagnosis(s): asymptomatic. Problem: Acute (4) COPD (chronic obstructive pulmonary disease) Problem: Chronic Qualifiers: COPD type: unspecified COPD Qualified Code(s): J44.9 - Chronic obstructive pulmonary disease, unspecified (5) H/O hyperlipidemia Problem: Chronic (6) Anxiety and depression Problem: Chronic (7) Migraine Problem: Chronic Qualifiers: Migraine type: unspecified Status migrainosus presence: without status migrainosus Intractability: not intractable Qualified Code(s): G43.909 - Migraine, unspecified, not intractable, without status migrainosus Description of Stay: Charlie Zuniga, is a 71-year-old white male, with previous medical history of paroxysmal atrial fibrillation, COPD, GERD, obstructive sleep apnea, migraine, who woke up around 2:30 in the morning of admission, , with palpitations. He said his BP meter was registering around 110. This was associated with some anxiety. At around 7:30 in the morning they called the physician production reproduction manager and he was told that if he is having chest pain to go to the emergency room, otherwise, to wait until later and call the clinic. At 8:00 a.m. started having chest pain described as a belt tied around his chest, 7/10 , nonradiating, not associated with nausea or vomiting, no diaphoresis. He did say he was also anxious. He was then brought to the emergency room where he was given nitroglycerin in and his chest pain improved. His EKG showed atrial fibrillation with rate control of [address] depression. He was then admitted under our chest pain protocol. His EKG showed AFib and his troponin x 2 were less than 0.017. He did not have CP since admission but has had paroxysmal NSVT, asymptomatic. His stress test was cancelled. Rate vs rhythm control was discussed with patient. If he is going to be electrically cardioverted , he needs to be on Coumadin or he can be scheduled for RELL and if w/o thrombus be cardioverted. He can also be chemically cardioverted . They will talk with their financial institution manager. Will continue him on his Metorpolol and ASA ( CHADS 1) for now and schedule him with Dr. Munroe next week. Procedures Performed: none Discharge Disposition: Home self care Disposition: Home self-care Condition: Good Discharge Activity: Activity as tolerated Discharge Diet: Low salt Referrals: William Dennis MD [Primary Care Provider] - Additional Patient Instructions (free text): Follow up with PCP in [address] Dennis on 08-09-16 @ 11:15am. Schedule an appointment with Dr. Munroe next [id number] @ 2:00pm here at [facility]. AFib, CP resolved, AMI ruled out, paroxysmal NSVT. Complete Home Medications List: Complete Home Medication List: Oxybutynin Chloride [Ditropan] 5 mg PO BID 01/21/13 Simvastatin [Zocor] 20 mg PO HS 01/21/13 Testosterone Cypionate [Depo-Testosterone] 200 mg IM Q30D 01/21/13 Tamsulosin HCl [Flomax] 0.4 mg PO DAILY 11/16/14 Docusate Sodium [Colace] 100 mg PO BID 02/07/15 Loratadine [Claritin] 10 mg PO DAILY 02/07/15 Pantoprazole Sodium [Protonix] 40 mg PO BID 02/07/15 Albuterol Sulfate [Proventil Hfa] 2 puff IH Q4H PRN 07/09/15 ALPRAZolam [Xanax] 0.5 mg PO TID PRN 10/23/15 Aspirin [Aspirin Enteric Coated] 325 mg PO DAILY 10/23/15 Metoprolol Tartrate [Lopressor] 12.5 mg PO BID 10/23/15 Acetaminophen [Tylenol] 1,000 mg PO QID PRN 07/25/16 Cholecalciferol (Vitamin D3) [Vitamin D3] 2,000 unit PO DAILY 07/25/16 Mometasone Furoate [Asmanex Hfa] 1 puff IH DAILY 07/25/16 Tiotropium [place] [Spiriva] 18 mcg IH DAILY 07/25/16
[2016-07-26] MEDS: PANTOPRAZOLE SODIUM 40 MG TABLET.EC PO SCH (07:53)
[2016-07-26 07:58] VITALS: BP 142/85
[2016-07-26] MEDS: METOPROLOL TARTRATE 25 MG TABLET PO SCH (08:52)
[2016-07-26] MEDS: OXYBUTYNIN CHLORIDE 5 MG TABLET PO SCH (08:52)
[2016-07-26] MEDS: ASPIRIN 325 MG TABLET.DR PO SCH (08:52)
[2016-07-26] MEDS: DOCUSATE SODIUM 100 MG CAPSULE PO SCH (08:52)
[2016-07-26] MEDS ORDERED: LORATADINE 10 MG TABLET PO SCH (09:00)
[2016-07-26] MEDS ORDERED: CHOLECALCIFEROL 1,000 UNIT CAPSULE PO SCH (09:00)
== END 2016-07-26 09:00 | disposition home or self-care (01) ==
LOC: ER 08:33 → MS 09:53
PROVIDERS: ADMIT Internal Medicine; ATTEND Internal Medicine
DX: R07.2 Precordial pain (principal); I48.1 Persistent atrial fibrillation; I47.2 Ventricular tachycardia; J44.9 Chronic obstructive pulmonary disease, unspecified; Z87.891 Personal history of nicotine dependence; F41.8 Other specified anxiety disorders; G43.909 Migraine, unspecified, not intractable, without status migrainosus
CPT/HCPCS: 36415; 71010; 80053; 84484; 85025; 85610; 85730; 93005; 94660; 96374; 99284; G0378